=== PATIENT | female | born 1950 | race African-American/Black ===

== ENCOUNTER → 2021-02-01 | Outpatient (CLI) | payer BC ==
[~2021-02-01] MED LIST: DEXT237L PO; IPRA3AMP30 NPPB; LEVO750T26 PO; LOSA1TAB25 PO; METF500T27 PO; POTA10TA11 PO; PRED20TA PO; SIMV40TA20 PO
== END | disposition home or self-care (01) ==
LOC: RAD 13:46
PROVIDERS: ATTEND Nurse Practitioner Family
DX: K80.20 Calculus of gallbladder without cholecystitis without obstruction (principal)
CPT/HCPCS: 76700